=== PATIENT | female | born 1925 | race Caucasian/White ===

== ENCOUNTER 2017-02-23 20:54 | Emergency (ER) | payer MEDICARE, BC ==
[~2017-02-23] VITALS: Ht 152.4 cm; Wt 74.9 kg
[~2017-02-23 20:54] MED LIST: AUGM500T7 PO; AZIT250T74 PO; BACL10TA PO; BENA10TA OR; DEXI60CA3 PO; GABA100C4 PO; GUAI600 PO; LASI20TA PO; LEVO.1 PO; LORTA5 PO; MECL-62 PO; MEDR4PAK3 PO; METO50TA11 PO; MOME17I; MONT10TA2 PO; NORV5TAB PO; ST JTAB PO; SUCR1S PO; SYMB80AE INH; ZOFR4TAB3 PO
[2017-02-23 20:58] VITALS: BP 231/92; PULSE 84; RESP 16; TEMP 98.3; O2SAT 95
--- NOTE | 2017-02-23 21:21 | PD ---
HPI Chief Complaint: Pain: Acute or Chronic Time Seen by Provider: 21:06 Travel History International Travel<30 days: No Contact w/Intl Traveler<30days: No Traveled to known affect area: No History of Present Illness HPI 89-year-old female sent here from an urgent care facility for evaluation of possible right lower extremity DVT. Patient has history of osteoarthritis. For the last week she has had increasing pain in her right knee and right calf. She denies trauma. No chest pain or dyspnea. No history of DVT or PE. No fevers or chills. Blood pressure was notably elevated at 238/93 in triage. The patient denies chest pain. No paresthesias or motor deficits. PFSH Past Medical History Arthritis: Yes (RHEUMATOID OSTEOPOROSIS) Cancer: Yes (LYMPHOMA 1989) Cardiovascular Problems: Yes High Cholesterol: Yes Chemotherapy: Yes COPD: Yes (PULMONARY FIBROSIS) Diabetes: No Diminished Hearing: No Endocrine: Yes Genitourinary: No Hypertension: Yes Immune Disorder: No Musculoskeletal: Yes Neurologic: Yes Psychiatric: No Reproductive: No Respiratory: Yes (PULMONARY FIBROSIS) Radiation Therapy: No Thyroid Disease: Yes Menopausal: Yes Past Surgical History Abdominal Surgery: Yes (gallbladder surgery 1989) Cholecystectomy: Yes Social History Alcohol Use: No Tobacco Use: No Substance Use: No Allergies-Medications (Allergen,Severity, Reaction): Coded Allergies: propranolol (Unverified Allergy, Intermediate, UNKNOWN, 02/23/17) iodine (Unverified Allergy, Mild, 02/23/17) potassium iodide (Unverified Allergy, Mild, 02/23/17) povidone-iodine (Unverified Allergy, Mild, 02/23/17) sodium iodide (Unverified Allergy, Mild, 02/23/17) sodium iodide (Unverified Allergy, Mild, 02/23/17) Sulfa (Sulfonamide Antibiotics) (Unverified Adverse Reaction, Severe, VOMITS, 02/23/17) celecoxib (Unverified Adverse Reaction, Severe, DIARRHEA, 02/23/17) codeine (Unverified Adverse Reaction, Severe, VOMITING, 02/23/17) diatrizoate meglumine (Unverified Adverse Reaction, Mild, VOMITING, ) gadobenic acid (Unverified Adverse Reaction, Mild, VOMITING, 02/23/17) gadodiamide (Unverified Adverse Reaction, Mild, VOMITING, 02/23/17) gadoteridol (Unverified Adverse Reaction, Mild, VOMITING, 02/23/17) iodixanol (Unverified Adverse Reaction, Mild, VOMITING, 02/23/17) iohexol (Unverified Adverse Reaction, Mild, VOMITING, 02/23/17) Uncoded Allergies: CLINORIL (Allergy, Severe, HIVES, 10/27/14) . Reported Meds & Prescriptions Reported Meds & Active Scripts Active Reported Aspirin 81 Mg Chew 81 Mg CHEW DAILY Baclofen 10 Mg Tab 10 Mg PO DAILY Benazepril (Benazepril HCl) 10 Mg Tab 10 Mg PO DAILY Symbicort Inh (Budesonide/Formoterol Fumarate) 80-4.5 Mcg/Act Aero 2 Puff INH Q12HR Dexilant (Dexlansoprazole) 60 Mg Cap.drRudolphbp 1 Cap PO DAILY Lasix (Furosemide) 20 Mg Tab 20 Mg PO DAILY Gabapentin 100 Mg Cap 100 Mg PO BID Nasonex Nasal [place] (Mometasone Furoate) 50 Mcg/Act Naspr 2 [place] EACH NARE DAILY Singulair (Montelukast Sodium) 10 Mg Tab 10 Mg PO HS Norvasc (Amlodipine Besylate) 5 Mg Tab 5 Mg PO DAILY Carafate (Sucralfate) 1 Gram Tab 1 Gm PO QID On empty stomach Synthroid (Levothyroxine Sodium) 100 Mcg Tab 100 Mcg PO DAILY Toprol XL (Metoprolol Succinate) 50 Mg Tab 50 Mg PO DAILY Review of Systems Except as stated in HPI: all other systems reviewed are Neg Physical Exam Narrative GENERAL: Well-developed, well-nourished, pleasant, comfortable, no apparent distress. SKIN: Focused skin assessment warm/dry. No warmth or erythema. No rash. HEAD: Atraumatic. Normocephalic. EYES: Pupils equal and round. No scleral icterus. No injection or drainage. ENT: Mucous membranes pink and moist. NECK: Trachea midline. No JVD. CARDIOVASCULAR: Regular rate and rhythm. Bilateral dorsalis pedis pulses are brisk and equal. RESPIRATORY: No accessory muscle use. Clear to auscultation. Breath sounds equal bilaterally. MUSCULOSKELETAL: Right knee with moderate edema with compared to the left with diffuse tenderness with normal range of motion without warmth or erythema. Right calf is moderately tender with mild edema when compared to the left. All compartments in bilateral lower extremities are supple. NEUROLOGICAL: Awake and alert. No obvious cranial nerve deficits. Motor grossly within normal limits. Normal speech. PSYCHIATRIC: Appropriate mood and affect; insight and judgment normal. Data Data Last Documented VS Vital Signs Date Time Temp Pulse Resp B/P (MAP) Pulse Ox O2 Delivery O2 Flow Rate FiO2 02/23/17 21:16 82 18 02/23/17 20:58 98.3 231/92 (138) 95 Orders Orders Us Leg Venous Doppler (02/23/17 ) Knee, Complete (4vws) (02/23/17 ) [facility] Medical Decision Making Medical Screen Exam Complete: Yes Emergency Medical Condition: Yes Differential Diagnosis Osteoarthritis, DVT, inflammatory arthritis, septic arthritis unlikely, hypertensive crisis unlikely Narrative Course Initial vital signs show heart rate 84, blood pressure 231/92, pulse ox 95% on room air, oral temp of 98.3F. Right knee x-ray: Osteoporotic bone mineralization. Otherwise negative with no acute bony abnormality. Right lower extremity venous duplex: Normal exam. No evidence of DVT. Patient and the patient's family were made aware of all findings. There are no physical exam findings to suggest a septic arthritis. She is not displaying any signs or symptoms of hypertensive crisis. At this point she is stable for discharge home with outpatient follow-up with her primary care physician this week. She has pain medicine at home. She was informed on when to return to the emergency department. She verbalizes understanding and agreement with plan. Diagnosis Primary Impression: Right leg pain Referrals: Primary Care Physician 3 days Additional Instructions: Follow-up with your primary care physician this week. Return to the emergency department for worsening symptoms or any other concerns. Disposition: 01 DISCHARGE HOME Condition: Stable Tarik Dang MD Feb 23, 2017 21:21
[2017-02-23] MEDS ORDERED: GABA100C4 PO (21:28)
[2017-02-23] MEDS ORDERED: DEXI60CA2 PO (21:28)
[2017-02-23] MEDS ORDERED: MOME17I EACH NARE (21:28)
[2017-02-23] MEDS ORDERED: BENA10TA PO (21:28)
[2017-02-23] MEDS ORDERED: CARA1TAB6 PO (21:28)
[2017-02-23] MEDS ORDERED: ASPI81CH CHEW (21:28)
[2017-02-23] MEDS ORDERED: BACL10TA PO (21:28)
[2017-02-23] MEDS ORDERED: TOPR50TA PO (21:28)
[2017-02-23] MEDS ORDERED: MONT10TA2 PO (21:28)
[2017-02-23] MEDS ORDERED: FURO1TAB62 PO (21:28)
[2017-02-23] MEDS ORDERED: LEVO.1 PO (21:28)
[2017-02-23] MEDS ORDERED: AMLO5 PO (21:28)
[2017-02-23] MEDS ORDERED: SYMB80AE INH (21:28)
--- NOTE | 2017-02-23 22:15 | RADRPT ---
EXAM DATE/TIME: 02/23/2017 22:01 [facility] COMPARISON: No previous studies available for comparison. INDICATIONS : Pain in right leg. No known injury. Rule out possible right leg blood clot. MEDICAL HISTORY : None. SURGICAL HISTORY : None. ENCOUNTER: Initial ACUITY: 1 day PAIN SCORE: 4/10 LOCATION: Right Knee FINDINGS: Four view examination of the right knee demonstrates no evidence of fracture or dislocation. Bony mi neralization is demineralized osteoporotic. The articular surfaces are intact. The suprapatellar so ft tissues have a normal configuration. CONCLUSION: Osteoporotic bone mineralization. Otherwise negative with no acute abnormality Paulo Duran MD on February 23, 2017 at 22:13 Board Certified Radiologist. This report was verified electronically.
--- NOTE | 2017-02-23 22:27 | RADRPT ---
EXAM DATE/TIME: 02/23/2017 22:10 [facility] COMPARISON: No previous studies available for comparison. INDICATIONS : Right leg pain. MEDICAL HISTORY : Hypercholesterolemia. Hypertension. Pulmonary fibrosis. Rheumatoid osteoporosis. Lymphoma. Thyroi d disease. SURGICAL HISTORY : Cholecystectomy. ENCOUNTER: Initial ACUITY: 1 week PAIN SCORE: 10/10 LOCATION: Right leg. TECHNIQUE: Venous ultrasound of the leg was performed from the inguinal ligament to the proximal calf. Real-rio e, color Doppler and spectral tracing, compression and augmentation techniques were used. FINDINGS: There is normal compressibility of the deep venous system from the inguinal region to the proximal ca lf. No echogenic clot is seen in the lumen of the common femoral, femoral, popliteal, and posterior tibial veins. There is a normal response of the venous system to proximal and distal augmentation an d respiration. CONCLUSION: Normal examination. No evidence of DVT Paulo Duran MD on February 23, 2017 at 22:25 Board Certified Radiologist. This report was verified electronically.
[2017-02-23 23:06] VITALS: BP 145/72; PULSE 75; RESP 18; O2SAT 98
== END 2017-02-23 23:09 | disposition home or self-care (01) ==
LOC: PHED 20:54
DX: M79.604 Pain in right leg (principal)
CPT/HCPCS: 73564; 93971; 99284

== ENCOUNTER → 2017-05-15 | Day surgery (SDC) | payer MEDICARE, BC ==
[~2017-05-15] MED LIST changes: +AMLO5 PO; +ASPI-516 CHEW; -AUGM500T7 PO; -AZIT250T74 PO; -BENA10TA OR; +BENA10TA PO; +CARA1TAB6 PO; +FURO1TAB62 PO; -GUAI600 PO; +HYDR-4107 PO; -LASI20TA PO; +LEVO75TA3 PO; +LIDOCAINE HCL 1% PF 30 ML VIAL INFIL ONE; -LORTA5 PO; -MEDR4PAK3 PO; +MELO15TA20 PO; -METO50TA11 PO; -MOME17I; +MOME17I EACH NARE; -NORV5TAB PO; +PROPOFOL 200 MG/20 ML AMP IV ONE; +SODIUM CHLORIDE 0.9% 10 ML VIAL ONE; -ST JTAB PO; -SUCR1S PO; +TOPR50TA PO; +ZOFR4TAB PO; -ZOFR4TAB3 PO; +methylPREDNISolone ACETATE 80 MG/ML VIAL ONE
--- NOTE | 2017-05-15 10:02 | M6 ---
cc: Rocio HAIRSTON DATE 05/15/2017 DATE OF 1925 PROCEDURE Fluoroscopically guided L4-5 interlaminar epidural steroid injection. PROCEDURE NOTE History and physical was completed and signed. Consent was signed. Procedure site was marked. Medications were listed and reconciled. Pain score was recorded. Allergies were noted. Time out was taken. Fluoroscopy time was recorded where applicable. Sedation was administered or directed by Dr. Hairston. The patient was given oxygen. The patient was monitored by a registered nurse. Total procedure time was greater than 15 minutes. IV was started, blood pressure cuff, pulse oximeter and EKG were applied. The patient was placed in the prone position on a Tj table sedated with small amounts of propofol titrated to effect. Vital signs were monitored and remained stable throughout the procedure. The lumbar area was prepped with alcohol and draped with sterile drapes. Fluoroscopy was used to visualize the L4-5 interlaminar space. The skin was infiltrated with 1% Xylocaine using a 27 gauge needle. Then a 3-1/2-inch 18-gauge Jackson needle was advanced using fluoroscopic guidance and the [id number] technique into the epidural space at L4-5 slightly to the right of the midline. There was negative aspiration for blood or any other type of fluid and the patient was given 8 mL of half percent Xylocaine, 80 mg of Depo-Medrol. Following this, the patient was taken to the recovery room with stable vital signs neurologically intact. MD IRA Burgos/ADRI /9:36 AM /9:44 AM
== END | disposition home or self-care (01) ==
LOC: PHSDC 08:22
PROVIDERS: ATTEND Pain Medicine Interventional Pain Medicine
DX: M54.5 Low back pain (principal)
CPT/HCPCS: 62323; 99152; J1040

== ENCOUNTER → 2017-06-14 | Outpatient (CLI) | payer MEDICARE, BC ==
[~2017-06-14] MED LIST changes: -ASPI-516 CHEW; -BACL10TA PO; -FURO1TAB62 PO; -GABA100C4 PO; -LEVO.1 PO; -LIDOCAINE HCL 1% PF 30 ML VIAL INFIL ONE; -MOME17I EACH NARE; -MONT10TA2 PO; -PROPOFOL 200 MG/20 ML AMP IV ONE; -SODIUM CHLORIDE 0.9% 10 ML VIAL ONE; -methylPREDNISolone ACETATE 80 MG/ML VIAL ONE
--- NOTE | 2017-06-23 08:25 | RSPPFT ---
DATE OF PROCEDURE: 06/14/17 COMMENTS: Spirometry demonstrates an FEV1 of 1.0 at 80% of predicted, FVC of 1.3 at 67%, FEF 25-75 at 117% of predicted. Post-bronchodilator study demonstrated improvements in the FEF 25-75. Lung volumes were not completed. Diffusion capacity is severely reduced. Flow volume loops suggest a restrictive pattern. IMPRESSION: 1. Moderate restrictive disease. 2. No significant obstructive disease. 3. Minimal response to use of bronchodilator.
== END ==
LOC: PHRSP 07:26
DX: J84.10 Pulmonary fibrosis, unspecified (principal); R05 Cough; R06.00 Dyspnea, unspecified
CPT/HCPCS: 94060; 94729